=== PATIENT | male | born 1970 | race Caucasian/White ===

== ENCOUNTER 2017-09-20 03:40 | Emergency (ER) | payer MEDICAID ==
[~2017-09-20] VITALS: Ht 177.8 cm; Wt 95.3 kg
[2017-09-20] MEDS ORDERED: IBUPROFEN600 MG ORAL (04:14)
--- NOTE | 2017-09-20 04:15 | Emergency Room Report ---
History of Present Illness General Chief Complaint: Sore Throat Source: Patient Present Illness [facility] This a 46-year-old male with no past medical history. He presents with chief point of sore throat. Onset last night. Worse with swallowing. Some slight cough and congestion. No fever chills. No nausea no vomiting. Pain is 7 out of 10. He came in to see when he need antibiotics. Allergies: Coded Allergies: No Known Allergies (Unverified , 06/15/12) Patient History Past Medical History: see triage record, old chart reviewed Past Surgical History: other Pertinent Family History: none Social History: Denies: smoking Immunizations: other Reviewed Nursing Documentation: PMH: Agreed; PSxH: Agreed Nursing Documentation-PMH Past Medical History: No Stated History Review of Systems Eye: Denies: eye pain, blurred vision ENT: Reports: throat pain; Denies: ear pain, nose congestion, throat swelling Respiratory: Denies: cough, shortness of breath Cardiovascular: Denies: chest pain, palpitations Gastrointestinal: Denies: abdominal pain, diarrhea, nausea, vomiting Musculoskeletal: Denies: back pain, joint pain Skin: Denies: rash Neurological: Denies: headache, numbness Endocrine: Denies: increased thirst, increased urine Hematologic/Lymphatic: Denies: easy bruising All Other Systems: negative except mentioned in HPI Physical Exam Vital Signs Date Time Temp Pulse Resp B/P (MAP) Pulse Ox O2 Delivery O2 Flow Rate FiO2 09/20/17 03:49 99.6 102 16 136/89 95 Room Air 99.7 vitals with low-grade fever Sp02 EP Interpretation: reviewed, normal General Appearance: well appearing, no apparent distress, alert Head: normocephalic, atraumatic Eyes: bilateral eye PERRL, bilateral eye EOMI ENT: hearing grossly normal, normal pharynx, uvula midline - uvula is elongated and mild edema, other - no trismus Neck: full range of motion, supple, no meningismus Respiratory: chest non-tender, lungs clear, normal breath sounds Cardiovascular #1: regular rate, rhythm, no murmur Gastrointestinal: normal bowel sounds, non tender, no mass, no organomegaly, no bruit, non-distended Musculoskeletal: back normal, gait/station normal, normal range of motion Psychiatric: mood/affect normal Skin: warm/dry Medical Decision Making Diagnostic Impression: Primary Impression: Acute viral pharyngitis ER Course Patient presents with symptoms consistent with viral pharyngitis. No evidence of any strep throat. He has no exudates. No evidence of any trismus. No evidence of peritonsillar abscess or retropharyngeal abscess or Tre angina. We'll discharge home. Last Vital Signs Date Time Temp Pulse Resp B/P (MAP) Pulse Ox O2 Delivery O2 Flow Rate FiO2 09/20/17 03:49 99.6 102 16 136/89 95 Room Air 99.7 Status: unchanged Disposition: HOME, SELF-CARE Condition: Stable Scripts Ibuprofen* (MOTRIN*) 600 Mg Tablet 600 MG ORAL THREE TIMES A DAY, #30 TAB 0 Refills Prov: LATONIA KING M.D. 09/20/17 Additional Instructions: Follow-up your doctor in 7 days. You have a viral infection and antibiotics do not treat viruses. Increase fluid. Saltwater gargle. Return if symptom worsen. LATONIA KING M.D. September 20, 2017 04:15
[2017-09-20 04:19] VITALS: BP 136/89
== END 2017-09-20 04:20 | disposition home or self-care (01) ==
LOC: EMR 04:10
DX: J02.8 Acute pharyngitis due to other specified organisms (principal); B97.89 Other viral agents as the cause of diseases classified elsewhere
CPT/HCPCS: 99283

== ENCOUNTER 2020-07-09 04:06 | Emergency (ER) | payer MEDICAID ==
[~2020-07-09] VITALS: Ht 177.8 cm; Wt 93.0 kg
[~2020-07-09 04:06] MED LIST: IBUPROFEN600 MG ORAL
[2020-07-09 04:09] VITALS: BP 117/80
--- NOTE | 2020-07-09 04:14 | NUR ---
pt aox3 c/o left ankle/ foot pain. states he was playing soccer yesterday when injury occured. states he twisted his ankle. redness and minor swelling noted to site. no open wounds. v/s stable. pt in no distress.
--- NOTE | 2020-07-09 04:23 | NUR ---
pt medicated per mar
--- NOTE | 2020-07-09 04:25 | Emergency Room Report ---
History of Present Illness General Chief Complaint: Lower Extremity Injury Source: Patient Present Illness HPI 49-year-old male with no relevant past medical history here with left ankle pain and swelling. Patient says that yesterday he was playing soccer and slipped and inwardly rolled his left ankle. He has been able to ambulate on it without any difficulty but says that he feels pain in his lateral ankle when he does walk. Has not taken any medications for the pain. Pain is dull in nature, does not otherwise radiate. Located in the left ankle and left lateral foot. He never fell or hit his head or had loss of consciousness. Says the pain has been wor sening today and awoke him from sleep. No focal numbness or weakness. Allergies: Coded Allergies: No Known Allergies (Unverified , 07/09/20) COVID-19 Screening Contact w/high risk pt: No Experienced COVID-19 symptoms?: No COVID-19 Testing performed INTERPRETIVE PROGRAM COORDINATOR: No Review of Systems All Other Systems: negative except mentioned in HPI Physical Exam Vital Signs Date Time Temp Pulse Resp B/P (MAP) Pulse Ox O2 Delivery O2 Flow Rate FiO2 07/09/20 04:09 98.6 85 14 117/80 (92) 96 Sp02 EP Interpretation: reviewed, normal General Appearance: no apparent distress, alert, non-toxic Head: normocephalic, atraumatic Eyes: bilateral eye normal inspection, bilateral eye PERRL ENT: hearing grossly normal, normal pharynx, no angioedema, normal voice Neck: full range of motion Respiratory: speaking full sentences Cardiovascular #2: 2+ carotid (R), 2+ carotid (L), 2+ radial (R), 2+ radial (L), 2+ dorsalis pedis (R), 2+ dorsalis pedis (L) Musculoskeletal: back normal, normal range of motion, gait/station normal, other - Normal range of motion all extremities. Neurovascular intact. Very mild left lateral ankle effusion Neurologic: alert, motor strength/tone normal, oriented x3, sensory intact, responsive, speech normal Psychiatric: judgement/insight normal, memory normal, mood/affect normal, no suicidal/homicidal ideation Medical Decision Making Diagnostic Impression: Primary Impression: Ankle sprain ER Course X-ray ankle left: No acute bony or joint abnormalities X-ray foot left: No acute bony or joint abnormalities 49-year-old male here with left ankle pain after inwardly rolling his ankle yesterday. He was ambulatory and neurovascularly intact. X-ray of the left ankle and left foot were unremarkable. He had no other injuries. Clark wrap was applied by the nurse to the left ankle and inspected by myself. Patient was neurovascular intact before and after the Clark wrap was applied. He was given ibuprofen with improvement in his pain. Told to follow-up with primary care or return if symptoms worsen. He expressed understanding and was discharged. Last Vital Signs Date Time Temp Pulse Resp B/P (MAP) Pulse Ox O2 Delivery O2 Flow Rate FiO2 07/09/20 04:09 98.6 85 14 117/80 (92) 96 Scripts Ibuprofen* (MOTRIN*) 600 Mg Tablet 600 MG ORAL Q6H PRN for FOR PAIN, #20 TAB 0 Refills Prov: Alan Tapia M.D. 07/09/20 Alan Tapia M.D. Jul 09, 2020 04:25
[2020-07-09] MEDS ORDERED: IBUPROFEN600 M1 ORAL (04:26)
--- NOTE | 2020-07-09 04:43 | NUR ---
pt to xray by tech via wheelchair
--- NOTE | 2020-07-09 04:55 | NUR ---
cha wrap placed to left ankle/foot. pt given and understood instructions.
--- NOTE | 2020-07-09 04:56 | NUR ---
pt aox4. given and understands dischare instructions. ambulatory out w steady gait
--- NOTE | 2020-07-09 17:16 | Diagnostic Imaging Report ---
Indication: Left foot pain Technique: 3 views left foot Comparison: none Findings: No acute fracture. No dislocation. The joint spaces are preserved. Impression: Negative
--- NOTE | 2020-07-09 17:17 | Diagnostic Imaging Report ---
Indication: Left ankle pain Technique: 3 views of the left ankle Comparison: none Findings: No acute fracture. No dislocation. The joint spaces are preserved Impression: Negative
== END 2020-07-09 04:55 | disposition home or self-care (01) ==
LOC: EMR 04:30
DX: S93.402A Sprain of unspecified ligament of left ankle, initial encounter (principal); W19.XXXA Unspecified fall, initial encounter; Y93.66 Activity, soccer; Y92.9 Unspecified place or not applicable
CPT/HCPCS: 73610; 73630; Z7502; 99284